=== PATIENT | male | born 2000 | race Caucasian/White ===

== ENCOUNTER 2022-04-23 18:32 | Emergency (ER) | payer OTHER, SELFPAY ==
[2022-04-23 18:46] VITALS: BP 135/70; PULSE 77; RESP 16; TEMP 37; O2SAT 98; BMI 22.8
--- NOTE | 2022-04-23 20:30 | ED_ITS ---
HPI - General Adult General Time Seen by Provider: 20:30 Chief complaint: Eye Problems Stated complaint: Contact stuck in right eye Time Seen by Provider: 04/23/22 20:21 History of Present Illness HPI narrative: Bruno is a 21 year old male with no past medical history who presents to the ED with a contact lens stuck in the right eye. Patient states that try to get his right contact lens out and was unable too he says that he got, he feels that he got half of it out, still feels that it is in the upper eyelid, he tried to rinse it out get it out manually, his eye got red and irritated. Denies any visual changes, he did have some increased tearing, denies any nausea vomiting or any headache. This happened in the past were is able to get it out. Related Data Home Medications Medication Instructions Recorded Confirmed No Known Home Medications 04/23/22 04/23/22 Allergies Allergy/AdvReac Type Severity Reaction Status Date / Time No Known Drug Allergies Allergy Verified 04/23/22 18:49 Review of Systems Status of ROS: Reports: 10 or more systems reviewed and unremarkable except as noted in History and below [facility] Medical History (Updated 04/23/22 @ 21:53 by Kane Rodriguez RN) ADHD Impetigo Surgical History (Updated 04/23/22 @ 21:53 by Kane Rodriguez RN) No significant past surgical history Social History Smoking Status: Never smoker Do you use any of these nicotine containing products: None Second hand tobacco smoke exposure: No How often do you have a drink containing alcohol: never How often do you have six or more drinks on one occasion: Never AUDIT-C Alcohol total score: 0 Non-prescribed substance use: denies use Exam Narrative: Exam Narrative: General: NAD sitting comfortably HEENT: Pupils equal round reactive to light, there is conjunctival injection in the right eye, increased tearing, under Wood's lamp and fluorescein dye in no foreign bodies or contact lens seen, no corneal abrasion seen, he did have some swelling to the upper eyelid. Heart: NSR, S1 S2 Lungs CTAB Muscle skeletal: Moving upper lower extremities with no difficulty Neuro: Alert awake and oriented x3 Const: Vital Signs, click to edit/add: Vital Signs - 24 hr 04/23/22 18:46 Temperature 98.6 F Pulse Rate [Pulse Oximeter] 77 Respiratory Rate 16 Blood Pressure [Ri ght Upper Arm] 135/70 Pulse Oximetry 98 Oxygen Delivery Me thod Room Air Course Course Hospital Course: 8:30 PM: AIDET performed. Plan to apply tetracaine ophthalmic solution, will also use Wood's lamp as well as lower seen diet to make sure no corneal abrasions or foreign body is present. Plan to irrigate with normal saline, likely discharge with erythromycin 0.5% ointment. Reevaluation(s) Reevaluation #1: Patient was evaluated as well as under fluorescein dye and Wood's lamp, no foreign body noted did does have a lot of irritation, feels better after above care given, still feels like sandpaper likely caused by the irritation, will apply erythromycin ointment 0.5% to be applied 3 times daily over the next 5 days, he should follow up with a eye doctor if no improvement over the next few days. Time: 21:16 Vital Signs Vital signs: Initial Vital Signs Temperature 98.6 F 04/23/22 18:46 Temperature Source Temporal Artery Scan 04/23/22 18:46 Pulse Rate 77 04/23/22 18:46 Respiratory Rate 16 04/23/22 18:46 Blood Pressure 135/70 04/23/22 18:46 Blood Pressure Mean 91 04/23/22 18:46 Blood Pressure Position Supine 04/23/22 18:46 Pulse Oximetry 98 04/23/22 18:46 Oxygen Delivery Method 04/23/22 18:46 Vital Signs Temperature 98.6 F 04/23/22 18:46 Pulse Rate 77 04/23/22 18:46 Respiratory Rate 16 04/23/22 18:46 Blood Pressure 135/70 04/23/22 18:46 Pulse Oximetry 98 04/23/22 18:46 Oxygen Delivery Method 04/23/22 18:46 Temperature 98.0 F 04/23/22 21:31 Pulse Rate 79 04/23/22 21:31 Respiratory Rate 18 04/23/22 21:31 Blood Pressure 110/78 04/23/22 21:31 Pulse Oximetry 98 04/23/22 21:31 Oxygen Delivery Method 04/23/22 21:31 Discharge Plan Discharge Clinical Impression: Foreign body of right eye Patient Disposition: Home, Self-Care Condition: Improved Instructions: Eye Foreign Body (ED) Additional Instructions: To follow-up with ophthalmology or optometry over the next 2-3 days if no improvement with the symptoms, patient should continue to keep any contact lenses out of the eyes, to wear glasses over the next 3-5 days, return if wo rsening symptoms. Prescriptions: No Action No Known Home Medications Stand Alone Forms: MyHealth Info Instructions
[2022-04-23 21:13] VITALS: BP 105/70; PULSE 84; RESP 16; TEMP 37
[2022-04-23] MEDS: FLUORESCEIN SODIUM TOPICAL STRIP 1 STRIP EYE-BOTH (21:19)
[2022-04-23] MEDS: TETRACAINE 0.5% OPHTH 2 DROP EYE-BOTH (21:20)
[2022-04-23 21:31] VITALS: BP 110/78; PULSE 79; RESP 18; TEMP 36.7; O2SAT 98
== END 2022-04-23 21:32 | disposition home or self-care (01) ==
PROVIDERS: Emergency Provider Student in an Organized Health Care Education/Training Program
DX: X58.XXXA Exposure to other specified factors, initial encounter; Z97.3 Presence of spectacles and contact lenses; T15.91XA Foreign body on external eye, part unspecified, right eye, initial encounter
CPT/HCPCS: 99283; A9270